=== PATIENT | male | born 1975 | race Caucasian/White ===

== ENCOUNTER 2017-06-05 13:48 | Outpatient (RCR) | payer MEDICARE | END 2017-06-12 | disposition home or self-care (01) | LOC: WCC 13:48 | DX: L97.122 Non-pressure chronic ulcer of left thigh with fat layer exposed (principal); G82.21 Paraplegia, complete; F17.210 Nicotine dependence, cigarettes, uncomplicated; Z88.2 Allergy status to sulfonamides | CPT/HCPCS: 11042; G0463 ==

== ENCOUNTER 2017-11-20 09:06 | Outpatient (RCR) | payer MEDICARE | END 2017-12-13 | disposition home or self-care (01) | LOC: WCC 09:06 | DX: L89.892 Pressure ulcer of other site, stage 2 (principal); L98.8 Other specified disorders of the skin and subcutaneous tissue; L98.492 Non-pressure chronic ulcer of skin of other sites with fat layer exposed; F32.9 Major depressive disorder, single episode, unspecified; G82.20 Paraplegia, unspecified; Z88.2 Allergy status to sulfonamides | CPT/HCPCS: 11200 ==

== ENCOUNTER 2020-11-16 13:52 | Outpatient (RCR) | payer MEDICARE | END 2020-12-13 | disposition home or self-care (01) | LOC: WCC 13:52 | DX: L89.213 Pressure ulcer of right hip, stage 3 (principal); G82.21 Paraplegia, complete; F32.9 Major depressive disorder, single episode, unspecified; Z79.899 Other long term (current) drug therapy; Z88.2 Allergy status to sulfonamides | CPT/HCPCS: 11042; 15002 ==

== ENCOUNTER 2020-12-14 10:29 | Outpatient (RCR) | payer MEDICARE | END 2021-01-10 | disposition home or self-care (01) | LOC: WCC 10:29 | DX: L89.213 Pressure ulcer of right hip, stage 3 (principal); G82.21 Paraplegia, complete; F32.9 Major depressive disorder, single episode, unspecified; Z79.899 Other long term (current) drug therapy; Z88.2 Allergy status to sulfonamides; Z87.891 Personal history of nicotine dependence; Z99.3 Dependence on wheelchair | CPT/HCPCS: 11042; G0463 ==